=== PATIENT | female | born 1975 | race African-American/Black ===

== ENCOUNTER 2016-05-05 09:05 | Outpatient (CLI) ==
[2016-05-05 09:18] LABS: BASOPHILS # (AUTO) 0.1 K/uL (0-0.2); BASOPHILS % (AUTO) 0.9 % (0.0-3.0); EOSINOPHILS # (AUTO) 0.3 K/ul (0.0-0.7); EOSINOPHILS % (AUTO) 5.2 % (0.0-7.0); HEMOGLOBIN 12.4 g/dl (12.0-16.0); IMMATURE GRANULOCYTE % (AUTO) 0.3 % (0.0-5.0); LYMPHOCYTES # (AUTO) 1.5 K/uL (0.60-3.4); LYMPHOCYTES % (AUTO) 26.3 (10.0-50.0); MEAN CORPUSCULAR HEMOGLOBIN 28.4 pg (27.0-31.0); MEAN CORPUSCULAR HGB CONC 32.6 (31.8-35.4); MONOCYTES # (AUTO) 0.4 K/uL (0.4-2.0); MONOCYTES % (AUTO) 6.7 (0-10); NEUTROPHILS # (AUTO) 3.5 K/ul (2.0-6.9); NEUTROPHILS % (AUTO) 60.6; PLATELET COUNT 300 10^3/uL (140-440); RED BLOOD COUNT 4.37 10^6/ul (4.20-5.40); WHITE BLOOD COUNT 5.79 K/ul (4.6-10.2)
[2016-05-05 09:35] LABS: BILIRUBIN,URINE Negative (NEGATIVE); KETONES,URINE Negative (NEGATIVE); LEUKOCYTE ESTERASE ,URINE Trace (NEGATIVE); NITRITE,URINE Negative (NEGATIVE); PROTEIN,URINE Negative (NEGATIVE); URINE, BLOOD Negative (NEGATIVE)
[2016-05-05 09:49] LABS: ADD URINE MICROSCOPIC YES
[2016-05-05 10:01] LABS: ALBUMIN 3.7 g/dL (3.4-5.0); ANION GAP 8.8; BILIRUBIN,TOTAL 0.73 mg/dL (0.00-1.20); CALCIUM 9.1 mg/dL (8.2-10.2); CHOL/HDL RATIO 3.5 (4.5-5.5); CREATININE 0.8 mg/dL (0.60-1.30); POTASSIUM 3.8 mmol/L (3.5-5.10); TOTAL PROTEIN 7.4 g/dL (6.4-8.2)
== END 2016-05-05 09:06 | disposition home or self-care (01) ==
LOC: LAB 09:05
PROVIDERS: ATTEND Family Medicine
DX: Z00.00 Encounter for general adult medical examination without abnormal findings (principal); R73.9 Hyperglycemia, unspecified; F32.9 Major depressive disorder, single episode, unspecified
CPT/HCPCS: 36415; 80053; 80061; 81001; 84439; 84443; 85025

== ENCOUNTER 2016-06-13 08:57 | Outpatient (CLI) ==
--- NOTE | 2016-06-13 10:21 | MAMMO ---
EXAM: Bilateral digital screening mammogram History: Screening Comparison: Bilateral mammogram 10/08/2014 Findings: MLO and CC views of bilateral breasts demonstrate scattered fibroglandular breast parench yma. There are no dominant masses, no suspicious microcalcifications and no architectural distortio ns Impression: Stable negative mammogram. Recommend followup routine screening mammography in 1 year. BIRADS 1
== END 2016-06-13 08:58 | disposition home or self-care (01) ==
LOC: RAD 08:57
PROVIDERS: ATTEND Family Medicine
DX: Z12.31 Encounter for screening mammogram for malignant neoplasm of breast (principal)

== ENCOUNTER 2016-09-03 16:56 | Outpatient (CLI) ==
[2016-09-03 17:10] LABS: BASOPHILS # (AUTO) 0.1 K/uL (0-0.2); BASOPHILS % (AUTO) 0.7 % (0.0-3.0); EOSINOPHILS # (AUTO) 0.2 K/ul (0.0-0.7); EOSINOPHILS % (AUTO) 2.5 % (0.0-7.0); HEMATOCRIT 33.9 % (37.0-47.0); HEMOGLOBIN 11.6 g/dl (12.0-16.0); IMMATURE GRANULOCYTE % (AUTO) 0.2 % (0.0-5.0); LYMPHOCYTES # (AUTO) 2.3 K/uL (0.60-3.4); LYMPHOCYTES % (AUTO) 28.7 (10.0-50.0); MEAN CORPUSCULAR HEMOGLOBIN 29.4 pg (27.0-31.0); MEAN CORPUSCULAR HGB CONC 34.2 (31.8-35.4); MONOCYTES # (AUTO) 0.5 K/uL (0.4-2.0); MONOCYTES % (AUTO) 5.8 (0-10); NEUTROPHILS % (AUTO) 62.1; PLATELET COUNT 292 10^3/uL (140-440); RED BLOOD COUNT 3.94 10^6/ul (4.20-5.40); WHITE BLOOD COUNT 8.05 K/ul (4.6-10.2)
[2016-09-03 17:50] LABS: ALBUMIN 3.7 g/dL (3.4-5.0); ALBUMIN/GLOBULIN RATIO 1.12; BILIRUBIN,TOTAL 0.41 mg/dL (0.00-1.20); BUN/CREATININE RATIO 12.04; CALCIUM 9.2 mg/dL (8.2-10.2); CREATININE 0.83 mg/dL (0.60-1.30)
== END 2016-09-03 16:57 | disposition home or self-care (01) ==
LOC: LAB 16:56
PROVIDERS: ATTEND Family Medicine
DX: E78.00 Pure hypercholesterolemia, unspecified (principal); E66.3 Overweight
CPT/HCPCS: 36415; 80053; 84443; 85025

== ENCOUNTER 2016-09-24 09:27 | Outpatient (CLI) ==
--- NOTE | 2016-09-24 09:54 | DI ---
Exam: Chest two-view HISTORY: Chronic cough. FINDINGS: Two views of the chest demonstrate moderately expanded lungs with no evidence of pneumoni a or edema. The heart is normal in size and configuration. The pulmonary vasculature is not conges rita. The skeletal structures are intact. The urinary degenerative findings in the spine. IMPRESSION: No acute cardiopulmonary disease.
== END 2016-09-24 09:28 | disposition home or self-care (01) ==
LOC: RAD 09:27
PROVIDERS: ATTEND Family Medicine
DX: R05 Cough (principal)